=== PATIENT | female | born 1965 | race Two or more races ===

== ENCOUNTER → 2025-03-25 | Outpatient (CLI) | payer BC, SELFPAY ==
--- NOTE | 2025-03-25 14:00 | XR_ITS ---
Examination: Bone densitometry Date and time of exam:March 25, 2025 1405 hours INDICATIONS: Hysterectomy age 35% history osteoporosis Technique: Lumbar spine and hip total bone mineralization values of an calculated. Peak reference and age match control results have been displayed. Findings: Lumbar spine total bone mineralization is1.013 gm/cm2. This is 0.3 standard deviations below peak reference. This is 1.2 standard deviations above age-matched controls. Hip total bone mineralization is 1.003 gm/cm2 This is 0.5 standard deviations above peak reference. This is 1 5 standard deviations above age-matched controls Impression: There is normal mineralization based on lumbar spine measurements. There is normal mineralization based on hip measurements
== END | disposition home or self-care (01) ==
PROVIDERS: Referring Provider Nurse Practitioner; Visit Provider Nurse Practitioner
DX: Z78.0 Asymptomatic menopausal state (principal)
CPT/HCPCS: 77080